=== PATIENT | female | born 1985 | race Caucasian/White ===

== ENCOUNTER 2018-05-22 18:04 | Emergency (ER) | payer MEDICAID ==
[~2018-05-22] VITALS: Wt 74.1 kg
[2018-05-22] MEDS ORDERED: HYDROCODONE/APAP (5/325) TAB PO ONE (19:30)
[2018-05-22 21:50] VITALS: BP 113/64; PULSE 61; RESP 18
[2018-05-22] MEDS ORDERED: TRAM50TA2 PO (22:48)
--- NOTE | 2018-05-23 02:35 | ERD ---
ER Documentation Chief Complaint Chief Complaint LOW BACK PAIN AND BILAT KNEE PAIN. FOR 3 DAYS. NO NEURO DEFICIT. HPI 32-year-old female patient with no significant past medical history presents to ED complaining of lower back pain and bilateral knee pain that started 3 days ago. Reports she takes ibuprofen without any relief. Patient reports no trauma or injuries. Denies any dysuria, urgency or frequency, abdominal pain, fever, chills, chest pain. ROS All systems reviewed and are negative except as per history of present illness. Medications Home Meds Active Scripts Tramadol HCl (Tramadol HCl) 50 Mg Tablet, 50 MG PO Q6 PRN for PAIN, #20 TAB Prov:MCCARTHYSIS Nguyen MUNGUIA 05/22/18 PMhx/Soc History of Surgery: Yes (c sec x1 ) Hx Alcohol Use: No Hx Substance Use: No Hx Tobacco Use: No Smoking Status: Never smoker FmHx Family History: No diabetes, No coronary disease Physical Exam Vitals Vital Signs Date Temp Pulse Resp B/P (MAP) Pulse Ox O2 O2 Flow FiO2 Time Delivery Rate 05/22/18 98.3 61 18 113/64 99 Room Air 21:50 (80) 05/22/18 99.0 79 20 114/74 98 18:27 (87) Physical Exam Const: [id number], well-nourished. In no acute distress. Head: Atraumatic, normocephalic Eyes: Normal Conjunctiva without injection. No purulent discharge. ENT: Normal external ear, nose. Moist oropharynx without tonsillar exudates. Non-erythematous pharynx. Uvula midline. No drooling. No trismus. Neck: No cervical midline tenderness. Full range of motion. No meningismus. No cervical lymphadenopathy. No JVD. Resp: Clear to auscultation bilaterally. No wheezing, rhonchi, rales, or crackles. No accessory muscle use. No retractions. Cardio: Regular rate and rhythm. No murmurs, rubs or gallops. Abd: Soft, nontender, non distended. Normal bowel sounds. No palpable masses. No rebound tenderness. No guarding. Negative McBurney's point. Negative psoas sign. Negative obturator sign. : See exam in MDM. Skin: No petechiae or rashes Back: No midline tenderness. No CVA tenderness. Ext: No cyanosis, or edema. Positive straight leg test. Tenderness to palpation of bilateral lumbar muscles and bilateral patella with full range of motion with flexion, extension of bilateral knees. Neur: Awake and alert. Normal gait. Normal coordination. Psych: Normal Mood and Affect Results 24 hrs Laboratory Tests Test 05/22/18 19:20 POC Beta HCG, Qualitative NEGATIVE Current Medications Medications Dose Sig/Elisa Start Time Status Last (Trade) Ordered Route PRN Stop Time Admin Dose Reason Admin 1 tab ONCE ONCE 05/22/18 DC 05/22/18 Acetaminophen PO 19:30 19:20 / 05/22/18 19:31 Hydrocodone Bitart ([place] (5/325)) Procedures/MDM 32-year-old female patient with no significant past medical history presents to ED complaining of back pain that radiates to her bilateral legs that started about 3 days ago. Patient is afebrile and nontoxic-appearing. Patient was given [place] 5-325 mg here in the ED with improvement of her pain. Patient likely has sciatica. Patient is ambulating here in the ED without difficulty. Denies saddle anesthesia, numbness or tingling, urine or bowel incontinence, weakness. Low suspicion for cauda equina syndrome, cord compression, nephrolithiasis, aortic aneurysm, aortic dissection, epidural abscess, spinal hematoma, malignancy, pyelonephritis, or other emergent conditions. Diagnosis: Back Pain Discharge medications: Tramadol Follow up with primary care physician in 1-2 days. Instructed patient to return to the ED sooner for any worsening symptoms. Patient's questions were answered. Patient is hemodynamically stable. Patient understood and agreed with discharge plan. Patient discharged stable. Disclaimer: Inadvertent spelling and grammatical errors are likely due to EHR/dictation software use and do not reflect on the overall quality of patient care. Also, please note that the electronic time recorded on this note does not necessarily reflect the actual time of the patient encounter. Departure Diagnosis: Primary Impression: Back pain Back pain location: back pain in unspecified location Chronicity: unspecified Back pain laterality: unspecified Qualified Codes: M54.9 - Dorsalgia, unspecified Condition: Stable Patient Instructions: Back Pain (Acute Or Chronic), Knee Pain, Uncertain Cause, Back Pain W/ Sciatica Referrals: [facility] YOU HAVE RECEIVED A MEDICAL SCREENING EXAM AND THE RESULTS INDICATE THAT YOU DO NOT HAVE A CONDITION THAT REQUIRES URGENT TREATMENT IN THE EMERGENCY DEPARTMENT. FURTHER EVALUATION AND TREATMENT OF YOUR CONDITION CAN WAIT UNTIL YOU ARE SEEN IN YOUR DOCTORS OFFICE WITHIN THE NEXT 1-2 DAYS. IT IS YOUR RESPONSIBILITY TO MAKE AN APPOINTMENT FOR FOLOW-UP CARE. IF YOU HAVE A PRIMARY DOCTOR --you should call your primary doctor and schedule an appointment IF YOU DO NOT HAVE A PRIMARY DOCTOR YOU CAN CALL OUR PHYSICIAN REFERRAL HOTLINE AT IF YOU CAN NOT AFFORD TO SEE A PHYSICIAN YOU CAN CHOSE FROM THE FOLLOWING [facility] [id number] [facility] [address] [facility] [facility] [address] [facility] [address] [facility] [address] [facility]. [facility] [address] [facility] [facility] YOU HAVE RECEIVED A MEDICAL SCREENING EXAM AND THE RESULTS INDICATE THAT YOU DO NOT HAVE A CONDITION THAT REQUIRES URGENT TREATMENT IN THE EMERGENCY DEPARTMENT. FURTHER EVALUATION AND TREATMENT OF YOUR CONDITION CAN WAIT UNTIL YOU ARE SEEN IN YOUR DOCTORS OFFICE WITHIN THE NEXT 1-2 DAYS. IT IS YOUR RESPONSIBILITY TO MAKE AN APPOINTMENT FOR FOLOW-UP CARE. IF YOU HAVE A PRIMARY DOCTOR --you should call your primary doctor and schedule and appointment IF YOU DO NOT HAVE A PRIMARY DOCTOR YOU CAN CALL OUR PHYSICIAN REFERRAL HOTLINE AT . IF YOU CAN NOT AFFORD TO SEE A PHYSICIAN YOU CAN CHOSE FROM THE FOLLOWING [facility]: [facility] [address] [place] [address] [facility] [address] [place] [address] [facility] [address] [place] [address] [facility] Additional Instructions: Call your primary care doctor TOMORROW for an appointment during the next 2-3 days.See the doctor sooner or return here if your condition worsens before your appointment time. SIS MCCARTHY PA-C May 23, 2018 02:35
== END 2018-05-22 22:55 | disposition home or self-care (01) ==
LOC: FTE 18:04
DX: M54.5 Low back pain (principal)
CPT/HCPCS: 72100; 73562; 81025; Z7502; Z7610